=== PATIENT | male | born 1960 | race Caucasian/White ===

== ENCOUNTER → 2016-07-10 | Outpatient (CLI) | payer OTHER ==
--- NOTE | 2016-07-10 16:28 | CT ---
EXAMINATION TYPE: CT chest w con DATE OF EXAM: 07/10/2016 1:32 PM COMPARISON: There are no comparison studies at this location. HISTORY: Solitary Pulmonary Nodule CT DLP: 746 mGycm, Automated exposure control for dose reduction was used. CONTRAST: Performed injected with 100 mL of Omnipaque 300. TECHNIQUE: Axial images were obtained at 5 mm thick sections. Reconstructed images are reviewed on [facility] computer in the coronal plane. FINDINGS: Portion of the thyroid visualized is normal. No suspicious lung nodules or focal infiltrates are present. No enlarged mediastinal or hilar adenopathy is evident. The ascending aorta diameter at the level o f the main pulmonary artery is 4.3 cm. The main pulmonary artery diameter at the bifurcation is 2.[address] sections are obtained through the upper abdomen. There is moderate fatty infiltration to [facility] liver. IMPRESSIONS: 1. No suspicious lung nodules identified. 2. Aneurysmal dilatation of the ascending thoracic aorta
== END | disposition home or self-care (01) ==
LOC: RADCTMAIN 12:36
PROVIDERS: ATTEND Family Medicine
DX: I71.2 Thoracic aortic aneurysm, without rupture (principal)
CPT/HCPCS: 71260; Q9967

== ENCOUNTER 2019-12-04 10:43 | Day surgery (SDC) | payer OTHER ==
[2019-12-02 09:10] VITALS: BMI 38.4
[~2019-12-04 10:43] MED LIST: LACTATED RINGERS 1,000 ML IV SCH; LIDOCAINE 1% (10MG/ML) FOR IV START INTRADERMA PRN
[2019-12-04 10:58] VITALS: TEMP 97.8
[2019-12-04] MEDS ORDERED: LACTATED RINGERS 1,000 ML IV ONE (10:58)
[2019-12-04] MEDS ORDERED: PROPOFOL 10 MG/ML 20 ML VIAL IV ONE (12:05)
--- NOTE | 2019-12-04 12:19 | P.PCN ---
Date of Procedure: 12/04/19 Procedure(s) Performed: BRIEF HISTORY: Patient is a 59-year-old pleasant male scheduled for an elective colonoscopy as a part of Evaluation of prior history of colon polyps. Last colonoscopy was 3 years ago. PROCEDURE PERFORMED: Colonoscopy with biopsy and snare polypectomy. PREOPERATIVE DIAGNOSIS: History of colon polyps. IV sedation per Anesthesia. PROCEDURE: After informed consent was obtained, the patient, was brought into the endoscopy unit. IV sedation was administered by Anesthesia under continuous monitoring. Digital rectal examination was normal. Initially the Olympus CF-160 flexible video colonoscope was then inserted in the rectum, gradually advanced into the cecum without any difficulty. Careful examination was performed as the scope was gradually being withdrawn. Ileocecal valve and the appendiceal orifice were visualized and appeared normal. Prep was excellent. Mucosa of the cecum appeared normal. In the cecum there was a 2 mm sessile polyp removed by cold biopsy. In the hepatic flexure there was a 1.5 cm broad-based polyp removed by snare polypectomy. Rest of the ascending colon, transverse colon, descending colon, sigmoid colon, and rectum appeared normal. Retroflexion was performed in the rectum and no lesions were seen. The patient tolerated the procedure well. IMPRESSION: 2 mm sessile cecal polyp status post removal by cold biopsy 1.5 cm hepatic flexure polyp status post snare polypectomy RECOMMENDATIONS: Findings of this examination were discussed with the patient as well as his family. He was advised to follow with the biopsy results. If the biopsy shows an adenoma he can have a repeat colonoscopy in 3 years.
[2019-12-04 12:25] VITALS: PULSE 71
[2019-12-04 12:42] VITALS: BP 146/78; RESP 16
== END 2019-12-04 12:51 | disposition home or self-care (01) ==
LOC: ORWHC2ENDO 10:43
PROVIDERS: ATTEND Internal Medicine Gastroenterology
DX: Z12.11 Encounter for screening for malignant neoplasm of colon (principal); D12.3 Benign neoplasm of transverse colon; K63.5 Polyp of colon; K21.9 Gastro-esophageal reflux disease without esophagitis; Z86.010 Personal history of colon polyps; I10 Essential (primary) hypertension; G47.33 Obstructive sleep apnea (adult) (pediatric); Z99.89 Dependence on other enabling machines and devices; Z79.899 Other long term (current) drug therapy
CPT/HCPCS: 88305; 45380; 45385; J2704

== ENCOUNTER → 2023-02-11 | Outpatient (CLI) | payer OTHER ==
--- NOTE | 2023-02-13 12:40 | MR ---
EXAMINATION TYPE: MR tspine/lspine wo con DATE OF EXAM: 02/11/2023 5:48 PM CLINICAL INDICATION:Male, 62 years old with history of M54.16 RADICULOPATHY; PHH, Pain mid and low ba ck into right side COMPARISON: CT 01/24/2023 TECHNIQUE: Multi planar, multi sequence imaging was performed utilizing: T1-weighted, T2-weighted, a nd turbo inversion recovery imaging of the thoracic and lumbar spine. IV Contrast: cc . None. FINDINGS: Alignment: The thoracic and lumbar vertebral bodies have preserved heights and alignment. Cord: The conus medullaris and the distal spinal cord appear unremarkable with regards to their signa l intensity and morphology. Bones/Discs: Multilevel degeneration changes throughout the spine. Suspected high T1/high T2 signal T 7 vertebral body hemangioma. There is no abnormal bony edema on inversion recovery sequences. No abno rmal THORACIC: T5-T6 left facet joint osteophyte which mildly impresses upon the posterior left lateral spinal cord. Cord signal is maintained. T6-T7 left central/subarticular disc protrusion/extrusion which impresses upon the spinal cord, cord signal is maintained. There may be disc material extending inferiorly up to 9 mm T7-T8 osteophytes with mild spinal canal stenosis. The neural foramen are patent. T8-T9 osteophyte formation with mild spinal canal stenosis. The neural foramen are patent. The remainder of the levels without evidence of significant spinal canal or neural foraminal stenosis . LUMBAR: T12-L1: No evidence of significant spinal canal stenosis or neural foraminal stenosis. L1-L2: Disc bulge and facet joint arthropathy result in mild spinal canal and mild bilateral neural f oraminal stenosis. L2-L3: Disc bulge and facet joint arthropathy result in mild to moderate spinal canal and mild bilate ral neural foraminal stenosis. L3-L4: Disc bulge and facet joint arthropathy result in moderate to severe spinal canal and severe bi lateral neural foraminal stenosis. L4-L5: Disc bulge with central disc protrusion and facet joint arthropathy result in mild to moderate spinal canal and moderate to severe bilateral neural foraminal stenosis. L5-S1: The disc is rounded posterior morphology without significant spinal canal stenosis. Facet join t arthropathy with mild neural foraminal stenosis. Other findings: None. IMPRESSION: 1. T6-T7 left central disc extrusion which impresses upon the spinal cord. 2. Disc degeneration changes with T7-T8 and T8-T9 osteophytes which narrow the spinal canal. 3. L3-L4 moderate to severe spinal canal stenosis secondary disc bulge and facet joint arthropathy. There is also severe bilateral neural foraminal stenosis. 4. L4-L5 disc bulge with central protrusion with mild to moderate spinal canal stenosis and moderate to severe bilateral neural foraminal stenosis.
== END | disposition home or self-care (01) ==
LOC: RADMRIMAIN 16:33
PROVIDERS: ATTEND Family Medicine
DX: M51.16 Intervertebral disc disorders with radiculopathy, lumbar region (principal); M47.26 Other spondylosis with radiculopathy, lumbar region; M99.73 Connective tissue and disc stenosis of intervertebral foramina of lumbar region; M48.061 Spinal stenosis, lumbar region without neurogenic claudication; M51.14 Intervertebral disc disorders with radiculopathy, thoracic region; M25.78 Osteophyte, vertebrae
CPT/HCPCS: 72146; 72148

== ENCOUNTER 2023-03-27 07:29 | Day surgery (SDC) | payer OTHER ==
[2023-03-25 12:35] VITALS: BMI 41.3
[2023-03-27 07:58] VITALS: RESP 20; TEMP 98.6
[2023-03-27] MEDS ORDERED: PROPOFOL 10 MG/ML 20 ML VIAL IV ONE (08:33)
[2023-03-27] MEDS ORDERED: LIDOCAINE 1% INJ 10MG/ML (20 ML MDV) ONE (08:33)
--- NOTE | 2023-03-27 08:47 | P.PCN ---
Date of Procedure: 03/27/23 Procedure(s) Performed: BRIEF HISTORY: Patient is a 62-year-old pleasant white male scheduled for an elective colonoscopy as a part of evaluation of prior history of colon polyps. Last coloscopy was 3 years ago and was noted to have colon polyps. PROCEDURE PERFORMED: Colonoscopy with snare polypectomy. PREOPERATIVE DIAGNOSIS: History of colon polyps. IV sedation per Anesthesia. PROCEDURE: After informed consent was obtained, the patient, was brought into the endoscopy unit. IV sedation was administered by Anesthesia under continuous monitoring. Digital rectal examination was normal. Initially the Olympus CF-160 flexible video colonoscope was then inserted in the rectum, gradually advanced i nto the cecum without any difficulty. Careful examination was performed as the scope was gradually being withdrawn. Ileocecal valve and the appendiceal orifice were visualized and appeared normal. Prep was excellent. Mucosa of the cecum, ascending colon appeared normal. In the transverse colon there was a 1 cm polyp that was removed by snare polypectomy. Rest of the, transverse colon, descendin g colon, sigmoid colon, and rectum appeared normal. Retroflexion was performed in the rectum and no lesions were seen. The patient tolerated the procedure well. IMPRESSION: 1 cm transverse colon polyp status post polypectomy Rest of the colon appeared normal RECOMMENDATIONS: Findings of this examination were discussed with the patient as well as his family.. He was advised to follow with the biopsy results. If the biopsy reveals adenoma he can have a repeat colonoscopy in 3 years.
[2023-03-27 09:24] VITALS: BP 126/73; PULSE 76
== END 2023-03-27 09:21 | disposition home or self-care (01) ==
LOC: ORWHC2ENDO 07:29
PROVIDERS: ATTEND Internal Medicine Gastroenterology
DX: Z12.11 Encounter for screening for malignant neoplasm of colon (principal); D12.3 Benign neoplasm of transverse colon; I10 Essential (primary) hypertension; E78.5 Hyperlipidemia, unspecified; G47.33 Obstructive sleep apnea (adult) (pediatric); Z98.890 Other specified postprocedural states; Z86.010 Personal history of colon polyps; Z79.899 Other long term (current) drug therapy
CPT/HCPCS: 88305; 45385; J2001; J2704

== ENCOUNTER → 2023-06-24 | Outpatient (CLI) | payer OTHER ==
[2023-06-24 13:45] VITALS: BP 141/90; PULSE 99; RESP 15; TEMP 97.5
--- NOTE | 2023-06-24 14:36 | P.PAINPG ---
PQRS Measure Charge Sheet Comment: HISTORY OF PRESENT ILLNESS: A 63 yr old male w at side as a referral from Dr Luo presents today w severe and chronic mid back pain x 1 yr secondary to stenosis, DDD, spondylosis and facet arthropathy without myelopathy for evaluation. Pt states pain level is provoked at 9 /10 in intensity, constant, localized in the mid back, predominantly axial, dull in character w occasional shooting pain towards the neck. Pain is provoked by sitting/ standing in one position for > 20min and PT in 2019 which provoked immense pain. Pain is alleviated by physician guided home stretching regimen daily from [facility] since May 2023, injections (RFAs and ESIs), medications (Neurontin, [place], Toradol, Mobic, Tyl), repositioning and rest. Oswestry axial pain score at 26. PMH: OA, HTN, Hyperlipidemia, Gout PSH: Colonoscopy (2015, 2019, 2022), BL RFA T8-T12 (2018), Laminectomy, Lasik Surgery SH: No tobacco use, Occasional ETOH use, No illicit drug use. . FH: Noncontributory All: See list Meds: See list REVIEW OF ORGAN SYSTEMS: CONSTITUTIONAL: No fevers or chills. No recent weight loss. NEUROLOGICAL: + numbness and tingling along the distal extremities. No seizure disorders or headaches. MUSCULOSKELETAL: + pain PSYCHIATRIC: Denies current depression or suicidal thoughts. Physical Examinations : Constitutional : Cooperative , not in acute distress . Neurologic : Cranial nerve II to XII intact. No focal neurological deficits. Psychiatric : alert & oriented x 3. Matching mood & appropriate affect. Judgment & insight intact. Musculoskeletal : Cervical Spine Motor strength in the deltoid and biceps: Normal right side. Normal Left side Motor strength biceps and the wrist extensors: Normal right side . Normal left side Motor strength in the triceps muscle: Normal right side. Normal left side Deep tendon reflexes: Normal at the biceps. Normal at Brachioradialis. Normal at triceps Vertebral body tenderness to deep palpa tion over Cervical facet loading test: positive bilaterally Spurling test: positive bilaterally Neck distraction test: positive bilaterally Lachelle sign: positive bilaterally Thoracic spine Vertebral body TTP over T11 Ba test positive T11-T12 Lumbar spine Motor strength lower extremities ,thigh and legs 5/5 Right side , 5/5 Left side Deep tendon reflexes : Normal Knee Jerk. Normal Ankle Jerk Vertebral body tenderness over Ba Test positive Lumbar facet Loading Test: positive Right / positive Left Range of motion of the lumbar spine Flexion 30 degrees, extension 10 degrees Straight Leg Raise test: Left/ Right positive at degrees Isabella test: positive right / positive left. Severe tenderness over the Sacroiliac joint on the Right / Left sides Gaenslen test: positive bilaterally Seated flexion test: positive bilaterally. Sacral spine : Severe tenderness over the Sacroiliac joint: right side / left side Range of motion: Flexion of the lumbar spine <60 degrees Range of motion: Extension of the lumbar spine <20 degrees Gaenslen's Test positive Isabella test: positive right side / left side Thigh Thrust Test Sacral Thrust Test Imaging: MRI noncontrast of the thoracic and lumbar spine from 02/11/23 reviewed Assessment/ Plan : Thoracic stenosis, lumbar stenosis, lumbar DDD Recommendation of HERNAN T11-T12 #1. May need a series f injections for optimal pain relief. Risks, benefits of procedure discussed and patient verbalized understanding. Admits to anti- coagulant use or medical history of diabetes. Protocol for discontinuation/ continuation of medications florence procedure discussed. All questions answered. I have spent greater than 30 minutes on patient care today. Dr Epstein was available by phone for the evaluation of this patient. The time was used to review the medical records including relevant urine studies and Prescription history (MAPs), review of the available imaging, evaluation and examination of the patient, coordination of care with the medical staff and if applicable referring physicians, as well as creation of the medical record PQRS Narrative: Smoking Status Never smoker Home Medications: Ambulatory Orders Ascorbic Acid [Vitamin C] 1,000 mg PO DAILY 12/06/15 Cholecalciferol [Vitamin D3] 5,000 unit PO DAILY 12/06/15 Lisinopril-Hctz 10-12.5 mg [Zestoretic 10-12.5] 1 tab PO QAM 12/06/15 Omeprazole 20 mg PO DAILY 12/06/15 Gabapentin 300 mg PO TID 12/02/19 Krill Oil 500 mg PO DAILY 12/02/19 Multivit-Min/Folic/Vit K/Lycop [Men's Multivitamin Tablet] 1 each PO DAILY 0 12/02/19 Nebivolol HCl [Bystolic] 20 mg PO DAILY 12/02/19 Rosuvastatin [Crestor] 10 mg PO HS 03/25/23 Controlled Substance Measures - Controlled Substance Measures Is patient prescribed a controlled substance at discharge?: No
== END ==
LOC: PNWHC3 12:55
PROVIDERS: ATTEND Specialist
DX: M48.05 Spinal stenosis, thoracolumbar region (principal); M48.062 Spinal stenosis, lumbar region with neurogenic claudication; M51.35 Other intervertebral disc degeneration, thoracolumbar region; M19.90 Unspecified osteoarthritis, unspecified site; I10 Essential (primary) hypertension; E78.5 Hyperlipidemia, unspecified; Z79.899 Other long term (current) drug therapy; Z87.39 Personal history of other diseases of the musculoskeletal system and connective tissue
CPT/HCPCS: 99211

== ENCOUNTER 2023-07-02 11:04 | Day surgery (SDC) | payer OTHER ==
[2023-06-28 11:02] VITALS: BMI 41.3
[~2023-07-02 11:04] MED LIST changes: -LIDOCAINE 1% (10MG/ML) FOR IV START INTRADERMA PRN
[2023-07-02 11:53] VITALS: RESP 18; TEMP 98.6
[2023-07-02] MEDS ORDERED: methylPREDNISolone ACETATE 80 MG/ML 1 ML VIAL ONE (12:38)
[2023-07-02] MEDS ORDERED: ROPIVACAINE 5MG/ML 20ML VIAL ONE (12:38)
[2023-07-02] MEDS ORDERED: IOPAMIDOL M300 15ML VIAL ONE (12:38)
--- NOTE | 2023-07-02 13:05 | P.PCN ---
Description of Procedure: PREOPERATIVE DIAGNOSIS: 1- Thoracic Degenerative Disc Diseases 2-Thoracic spondylosis with Facet arthropathy without myelopathy. 3-Thoracic spinal stenosis POSTOPERATIVE DIAGNOSIS: 1-Thoracic degenerative disc disease. 2-Thoracic spondylosis with facet arthropathy without myelopathy. 3-Thoracic spinal stenosis. PROCEDURE Injection of radio contrast material into T10-11 interspace, interpretation of epidurogram, injection of steroid at T10-11 epidural space under fluoroscopic guidance. ANESTHESIA: Lidocaine 1% subcutaneously. In OR continuous pulse ox, EKG, blood pressure and verbal communication was maintained with the patient. EBL: Minimal PROCEDURE INDICATION: Before the procedure were discussed with the patient detailed procedure, alternatives, complications including infection, bleeding, nerve damage, paralysis all of which could be permanent. Patient understands and all questions were answered. PROCEDURE DESCRIPTION : After getting consent, patient in OR in prone position. Back was prepped with chlorhexidine and draped in sterile fashion. After injecting 10 mL of 1% lidocaine subcutaneously, a 20-gauge Tuohy needle was introduced at T10-11 interspace with loss of resistance technique using a syringe filled with air. Negative CSF, negative blood, negative paresthesia. Needle position was con firmed with AP and lateral view of the fluoroscope. After repeat negative aspiration 2 mL of Omnipaque 200 water soluble contrast was injected. Contrast was noted in the epidural space. No contrast was noted into intrathecal or intravascular space. After repeat negative aspiration 5 mL solution was injected intermittently which consists of 4 mL of preservative-free normal saline mixed with 1 mL of 80 mg Depo-Medrol. Needle was withdrawn intact. Skin was cleansed and Band-Aids was applied. DISPOSITION / PLANS: The patient tolerated the procedure well. No complication. The patient was placed in a supine position and transferred to the recovery area in a stable condition for observation. There was no evidence of lower extremity motor or sensory deficit after the procedure. Patient was discharged from the recovery room after meeting discharge criteria. Home discharge instructions were given to the patient by the staff. The patient was reexamined prior to discharge. The patient will schedule a follow up in the clinic in 2-4 weeks.
[2023-07-02 13:31] VITALS: BP 135/78; PULSE 74
--- NOTE | 2023-07-02 13:48 | FL ---
Fluoroscopy INDICATION: Pain FINDINGS: Fluoroscopy time: 9 seconds. Total dose area product (DAP) in uGy*m?, mGy*cm? (or similar): 0.09151 Images obtained: 3. IMPRESSION: 1. Documentation of fluoroscopy.
== END 2023-07-02 13:23 | disposition home or self-care (01) ==
LOC: ORPAIN 11:04
PROVIDERS: ATTEND Pain Medicine Interventional Pain Medicine
DX: M51.34 Other intervertebral disc degeneration, thoracic region (principal); M47.814 Spondylosis without myelopathy or radiculopathy, thoracic region; M48.04 Spinal stenosis, thoracic region; Z79.83 Long term (current) use of bisphosphonates; Z79.899 Other long term (current) drug therapy
CPT/HCPCS: 62321; J1040; Q9967; J2795

== ENCOUNTER → 2023-07-17 | Outpatient (CLI) | payer OTHER ==
[2023-07-17 13:59] VITALS: BP 158/87; PULSE 78; RESP 16
--- NOTE | 2023-07-17 14:35 | P.PAINPG ---
PQRS Measure Charge Sheet Comment: HISTORY OF PRESENT ILLNESS: A 63 yr old male w at side presents today w severe and chronic mid back pain x 1 yr secondary to stenosis, DDD, spondylosis and facet arthropathy without myelopathy for evaluation s/p HERNAN T10-11 #1. Pt states he experienced 50% pain relief x 3 wks s/p procedure. Pt states pain level is provoked at 9 /10 in intensity, constant, localized in the mid back, predominantly axial, dull in character w occasional shooting pain towards the neck. Pain is provoked by sitting/ standing in one position for > 20min and PT in 2019 which provoked immense pain. Pain is alleviated by physician guided home stretching regimen daily from [facility] since May 2023, use of an inversion table at home during physician guided home exercises, injections, medications, repositioning and rest. Oswestry axial pain score at 26. Interventional procedures include HERNAN T10-11 x1, RFAs Medications include [place], Neurontin, Toradol, Mobic, Tyl REVIEW OF ORGAN SYSTEMS: CONSTITUTIONAL: No fevers or chills. No recent weight loss. NEUROLOGICAL: + numbness and tingling along the distal extremities. No seizure disorders or headaches. MUSCULOSKELETAL: + pain PSYCHIATRIC: Denies current depression or suicidal thoughts. Physical Examinations : Constitutional : Cooperative , not in acute distress . Neurologic : Cranial nerve II to XII intact. No focal neurological deficits. Psychiatric : alert & oriented x 3. Matching mood & appropriate affect. Judgment & insight intact. Musculoskeletal : Cervical Spine Motor strength in the deltoid and biceps: Normal right side. Normal Left side Motor strength biceps and the wrist extensors: Normal right side . Normal left side Motor strength in the triceps muscle: Normal right side. Normal left side Deep tendon reflexes: Normal at the biceps. Normal at Brachioradialis. Normal at triceps Vertebral body tenderness to deep palpation over Cervical facet loading test: positive bilaterally Spurling test: positive bilaterally Neck distraction test: positive bilate rally Lachelle sign: positive bilaterally Thoracic spine Vertebral body TTP over T8 Ba test positive T8-9 BL Lumbar spine Motor strength lower extremities ,thigh and legs 5/5 Right side , 5/5 Left side Deep tendon reflexes : Normal Knee Jerk. Normal Ankle Jerk Vertebral body tenderness over Ba Test positive Lumbar facet Loading Test: positive Right / positive Left Range of motion of the lumbar spine Flexion 30 degrees, extension 10 degrees Straight Leg Raise test: Left/ Right positive at degrees Isabella test: positive right / positive left. Severe tenderness over the Sacroiliac joint on the Right / Left sides Gaenslen test: positive bilaterally Seated flexion test: positive bilaterally. Sacral spine : Severe tenderness over the Sacroiliac joint: right side / left side Range of motion: Flexion of the lumbar spine <60 degrees Range of motion: Extension of the lumbar spine <20 degrees Gaenslen's Test positive Isabella test: positive right side / left side Thigh Thrust Test Sacral Thrust Test Imaging: MRI noncontrast of the thoracic and lumbar spine from 02/11/23 reviewed Assessment/ Plan : Thoracic stenosis, lumbar stenosis, lumbar DDD Recommendation of HERNAN T8-T9 #2. May need a series f injections for optimal pain relief. Risks, benefits of procedure discussed and patient verbalized understanding. Admits to anti- coagulant use or medical history of diabetes. Protocol for discontinuation/ continuation of medications florence procedure discussed. All questions answered. I have spent greater than 30 minutes on patient care today. Dr Epstein was available by phone for the evaluation of this patient. The time was used to review the medical records including relevant urine studies and Prescription history (MAPs), review of the available imaging, evaluation and examination of the patient, coordination of care with the medical staff and if applicable referring physicians, as well as creation of the medical record PQRS Narrative: Smoking Status Never smoker Hx Alcohol Use (MH) No Home Medications: Ambulatory Orders Ascorbic Acid [Vitamin C] 1,000 mg PO DAILY 12/06/15 Cholecalciferol [Vitamin D3] 5,000 unit PO DAILY 12/06/15 Lisinopril-Hctz 10-12.5 mg [Zestoretic 10-12.5] 1 tab PO QAM 12/06/15 Omeprazole 20 mg PO DAILY 12/06/15 Gabapentin 300 mg PO TID 12/02/19 Krill Oil 500 mg PO DAILY 12/02/19 Multivit-Min/Folic/Vit K/Lycop [Men's Multivitamin Tablet] 1 each PO DAILY 12/02/19 Nebivolol HCl [Bystolic] 20 mg PO DAILY 12/02/19 Rosuvastatin [Crestor] 10 mg PO HS 03/25/23 Controlled Substance Measures - Controlled Substance Measures Is patient prescribed a controlled substance at discharge?: No
== END ==
LOC: PNWHC3 12:52
PROVIDERS: ATTEND Specialist
DX: M51.36 Other intervertebral disc degeneration, lumbar region (principal); M48.061 Spinal stenosis, lumbar region without neurogenic claudication; M48.04 Spinal stenosis, thoracic region
CPT/HCPCS: 99211

== ENCOUNTER 2023-08-08 12:52 | Day surgery (SDC) | payer OTHER ==
[2023-08-02 14:43] VITALS: BMI 41.6
[2023-08-08] MEDS ORDERED: LACTATED RINGERS 1,000 ML IV SCH (13:11)
[2023-08-08 13:42] VITALS: RESP 16; TEMP 97
[2023-08-08] MEDS ORDERED: IOPAMIDOL M300 15ML VIAL ONE (14:46)
[2023-08-08] MEDS ORDERED: ROPIVACAINE 5MG/ML 20ML VIAL ONE (14:46)
[2023-08-08] MEDS ORDERED: methylPREDNISolone ACETATE 80 MG/ML 1 ML VIAL ONE (14:46)
--- NOTE | 2023-08-08 15:30 | P.PCN ---
Description of Procedure: PREOPERATIVE DIAGNOSIS: 1- Thoracic Degenerative Disc Diseases 2-Thoracic spondylosis with Facet arthropathy without myelopathy. 3-Thoracic spinal stenosis POSTOPERATIVE DIAGNOSIS: 1-Thoracic degenerative disc disease. 2-Thoracic spondylosis with facet arthropathy without myelopathy. 3-Thoracic spinal stenosis. PROCEDURE Injection of radio contrast material into T 9-10 interspace, interpretation of epidurogram, injection of steroid at T 9-10 epidural space under fluoroscopic guidance. ANESTHESIA: Lidocaine 1% subcutaneously. In OR continuous pulse ox, EKG, blood pressure and verbal communication was maintained with the patient. EBL: Minimal PROCEDURE INDICATION: Before the procedure were discussed with the patient detailed procedure, alternatives, complications including lung puncture, infection, bleeding, nerve damage, paralysis all of which could be permanent. Patient understands and all questions were answered. PROCEDURE DESCRIPTION : After getting consent, patient in OR in prone position. Back was prepped with chlorhexidine and draped in sterile fashion. After injecting 10 mL of 1% lidocaine subcutaneously, a 20-gauge Tuohy needle was introduced at T 9-10 interspace with loss of resistance technique using a syringe filled with air. Negative CSF, negative blood, negative paresthesia. Needle position was confirmed with AP and lateral view of the fluoroscope. After repeat negative aspiration 2 mL of Omnipaque 200 water soluble contrast was injected. Contrast was noted in the epidural space. No contrast was noted into intrathecal or intravascular space. After repeat negative aspiration 5 mL solution was injected intermittently which consists of 4 mL of preservative-free normal saline mixed with 1 mL of 80 mg Depo-Medrol. Needle was withdrawn intact. Skin was cleansed and Band-Aids was applied. DISPOSITION / PLANS: The patient tolerated the procedure well. No complication. The patient was placed in a supine position and transferred to the recovery area in a stable condition for observation. There was no evidence of lower extremity motor or sensory deficit after the procedure. Patient was discharged from the recovery room after meeting discharge criteria. Home discharge instructions were given to the patient by the staff. The patient was reexamined prior to discharge. The patient will schedule a follow up in the clinic in 2-4 weeks.
--- NOTE | 2023-08-08 15:38 | FL ---
Fluoroscopy INDICATION: Pain FINDINGS: Fluoroscopy time: 28 seconds. Total dose area product (DAP) in uGy*m?, mGy*cm? (or similar): 0.58365 Images obtained: 3. IMPRESSION: 1. Documentation of fluoroscopy.
[2023-08-08 15:42] VITALS: BP 142/89; PULSE 61
== END 2023-08-08 15:40 | disposition home or self-care (01) ==
LOC: ORPAIN 12:52
PROVIDERS: ATTEND Pain Medicine Interventional Pain Medicine
DX: M48.04 Spinal stenosis, thoracic region (principal); M47.814 Spondylosis without myelopathy or radiculopathy, thoracic region; M51.34 Other intervertebral disc degeneration, thoracic region; I10 Essential (primary) hypertension; Z79.899 Other long term (current) drug therapy
CPT/HCPCS: 62321; J1040; Q9967; J2795

== ENCOUNTER → 2023-08-26 | Outpatient (CLI) | payer OTHER ==
--- NOTE | 2023-08-26 13:52 | P.PAINPG ---
Objective - Vital Signs Vital signs: Intake & Output 08/25/23 08/26/23 08/26/23 18:59 06:59 18:59 Weight 127.006 kg PQRS Measure Charge Sheet Comment: HISTORY OF PRESENT ILLNESS: A 63 yr old male w at side presents today w severe and chronic back pain x 1 yr secondary to stenosis, DDD, spondylosis and facet arthropathy without myelopathy for evaluation s/p HERNAN T9-10 #2. Pt states he experienced 80 % pain relief x 2-3 wks s/p procedure. Pt states pain level is provoked at 7 /10 in intensity, constant, localized in the mid back, predominantly axial, dull in character w occasional shooting pain towards the lower back. Pain is provoked by sitting/ standing in one position for > 20min and PT in 2018 which provoked immense pain. Pain is alleviated by physician guided home stretching regimen daily from [facility] since May 2023, use of an inversion table at home during physician guided home exercises, injections, medications, repositioning and rest. Pt states she will start PT in 1 wk. Oswestry axial pain score at 25. Interventional procedures include HERNAN T10-11 x1, RFAs, HERNAN T9-10 x1 (Aug 2023) Medications include [place], Neurontin, Toradol, Mobic, Tyl REVIEW OF ORGAN SYSTEMS: CONSTITUTIONAL: No fevers or chills. No recent weight loss. NEUROLOGICAL: + numbness and tingling along the distal extremities. No seizure disorders or headaches. MUSCULOSKELETAL: + pain PSYCHIATRIC: Denies current depression or suicidal thoughts. Physical Examinations : Constitutional : Cooperative , not in acute distress . Neurologic : Cranial nerve II to XII intact. No focal neurological deficits. Psychiatric : alert & oriented x 3. Matching mood & appropriate affect. Judgment & insight intact. Musculoskeletal : Cervical Spine Motor strength in the deltoid and biceps: Normal right side. Normal Left side Motor strength biceps and the wrist extensors: Normal right side . Normal left side Motor strength in the triceps muscle: Normal right side. Normal left side Deep tendon reflexes: Normal at the biceps. Normal at Brachioradialis. Normal at triceps Vertebral body tenderness to deep palpation over Cervical facet loading test: positive bilaterally Spurling test: positive bilaterally Neck distraction test: positive bilaterally Lachelle sign: positive bilaterally Thoracic spine Vertebral body TTP over T8 Ba test positive T8-9 BL Lumbar spine Motor strength lower extremities ,thigh and legs 5/5 Right side , 5/5 Left side Deep tendon reflexes : Normal Knee Jerk. Normal Ankle Jerk Vertebral body tenderness over L4 Ba Test positive L4-L5 BL Lumbar facet Loading Test: positive Right / positive Left Range of motion of the lumbar spine Flexion 30 degrees, extension 10 degrees Straight Leg Raise test: Left/ Right positive at degrees Isabella test: positive right / positive left. Severe tenderness over the Sacroiliac joint on the Right / Left sides Gaenslen test: positive bilaterally Seated flexion test: positive bilaterally. Sacral spine : Severe tenderness over the Sacroiliac joint: right side / left side Range of motion: Flexion of the lumbar spine <60 degrees Range of motion: Extension of the lumbar spine <20 degrees Gaenslen's Test positive Isabella test: positive right side / left side Thigh Thrust Test Sacral Thrust Test Imaging: MRI noncontrast of the thoracic and lumbar spine from 02/11/23 reviewed Assessment/ Plan : Thoracic stenosis, lumbar stenosis, lumbar DDD Recommendation of HERNAN L4-L 5#1. May need a series f injections for optimal pain relief. Risks, benefits of procedure discussed and patient verbalized understanding. Admits to anti- coagulant use or medical history of diabetes. Protocol for discontinuation/ continuation of medications [place]orence procedure discussed. All questions answered. I have spent greater than 30 minutes on patient care today. Dr Epstein was available by phone for the evaluation of this patient. The time was used to review the medical records including relevant urine studies and Prescription history (MAPs), review of the available imaging, evaluation and examination of the patient, coordination of care with the medical staff and if applicable referring physicians, as well as creation of the medical record PQRS Narrative: Smoking Status Never smoker Hx Alcohol Use (MH) No Home Medications: Ambulatory Orders Ascorbic Acid [Vitamin C] 1,000 mg PO DAILY 12/06/15 Cholecalciferol [Vitamin D3] 5,000 unit PO DAILY 12/06/15 Lisinopril-Hctz 10-12.5 mg [Zestoretic 10-12.5] 1 tab PO QAM 12/06/15 Omeprazole 20 mg PO DAILY 12/06/15 Gabapentin 300 mg PO TID 12/02/19 Krill Oil 500 mg PO DAILY 12/02/19 Multivit-Min/Folic/Vit K/Lycop [Men's Multivitamin Tablet] 1 each PO DAILY 12/02/19 Nebivolol HCl [Bystolic] 20 mg PO DAILY 12/02/19 Rosuvastatin [Crestor] 10 mg PO HS 03/25/23 diazePAM [Valium] 5 mg PO DAILY PRN 1 Days #2 tab 08/26/23 Controlled Substance Measures - Controlled Substance Measures Is patient prescribed a controlled substance at discharge?: Yes When asked, does pt state using other controlled substances?: Yes If prescribed controlled substance>3 days was MAPS reviewed?: Prescribed <3 Days
[2023-08-26 14:26] VITALS: BP 132/72; PULSE 76; RESP 15; TEMP 98.5
== END ==
LOC: PNWHC3 12:58
PROVIDERS: ATTEND Specialist
DX: M51.16 Intervertebral disc disorders with radiculopathy, lumbar region (principal); M48.05 Spinal stenosis, thoracolumbar region
CPT/HCPCS: 99211

== ENCOUNTER 2023-09-10 09:58 | Day surgery (SDC) | payer OTHER ==
[2023-09-10 10:38] VITALS: RESP 16; TEMP 98
[2023-09-10] MEDS ORDERED: IOPAMIDOL M200 10 ML VIAL ONE (10:38)
[2023-09-10] MEDS ORDERED: ROPIVACAINE 5MG/ML 20ML VIAL ONE (10:38)
[2023-09-10] MEDS ORDERED: TRIAMCINOLONE ACETONIDE 40 MG/ML 1 ML VIAL ONE (10:38)
--- NOTE | 2023-09-10 10:51 | P.PCN ---
Date of Procedure: 09/10/23 Surgeon: Carlyn Najera Pathology: none sent Condition: stable Disposition: PACU Description of Procedure: PREOPERATIVE DIAGNOSIS: 1-Lumbar radiculopathy 2- Lumber Degenerative Disc Diseases. POSTOPERATIVE DIAGNOSIS: 1-Lumbar radiculopathy. 2-Lumbar Degenerative Disc Diseases PROCEDURE 1. Lumbar epidural steroid injection under fluoroscopic guidance at the L5-S1 level in the right paramedian approach. 2. Lumbar epidurogram. ANESTHESIA: Local only with 1% lidocaine EBL: Minimal PROCEDURE INDICATION: The patient with low back pain and radiculitis symptoms unresponsive to conservative treatment. Fluoroscopy was used to optimize visualization of the needle placement and to maximize safety. PROCEDURE DESCRIPTION / TECHNIQUE: The patient was seen and identified in the preoperative area. Risks, benefits, complications including but not limited to infections ,bleeding ,allergic reaction to the medications ,nerve damage and not complete pain relief , and alternatives were discussed with the patient. The patient agreed to proceed with the procedure and signed the consent. IV was started, and vital signs were stable. Patient was taken to the OR and time out was completed. The patient was placed in the prone position on procedure table and a pillow was placed under the abdomen to reduce lumbar lordosis. The lumbosacral area was prepped and draped in the usual sterile fashion with ChloraPrep.Patient was closely monitored during the procedure. Conscious sedation was used during the procedure to decrease patients anxiety. Vital signs were monitered during the entire p rocedure. Using anterior-posterior fluoroscopy, the L5-S1 interlaminar space was identified and the skin over this site was marked and then infiltrated with 1% lidocaine subcutaneously. Subsequently, a 20-gauge Tuohy epidural needle was inserted and advanced toward the epidural space using the Loss of resistance to air technique and guided by AP and lateral fluoroscopy. The correct needle position in the epidural space was verified with the injection of 1 mL of the water soluble contrast dye Omnipaque 180 contrast and observing an excellent epidurogram with the epidural spread of the dye, after negative aspiration for blood and CSF and in the absence of paresthesias. Again after negative aspiration, a 8 ml mixture containing 40 mg of Kenalog and 5 ml of preservative free Normal Saline, and 2 ml of preservative free Ropivacaine 0.5% solution was injected and a washout of epidurogram was seen. Needle was withdrawn intact, skin was cleansed, and bandages were applied. patient tolerated procedure well and was transferred to PACU in stable condition.A copy of the needle placement picture was saved to the fluoroscopy machine. COMPLICATIONS: None This procedure was done at the L5-S1 level to avoid the scar tissue from his previous back surgery at the L4 5 level which carries a higher risk for dural puncture. I think the next time the patient may need to be scheduled for caudal epidural steroid injection with lysis of adhesions instead of lumbar epidural steroid injection. DISPOSITION / PLANS: The patient was placed in a supine position and transferred to the recovery area in a stable condition for observation. There was no evidence of lower extremity motor or sensory deficit after the procedure. Patient was discharged from the recovery room after meeting discharge criteria. Home discharge instructions were given to the patient by the staff. The patient was reexamined prior to discharge. The patient will schedule a follow up in the clinic in 2-4 weeks.
[2023-09-10 11:24] VITALS: BP 113/77; PULSE 75
--- NOTE | 2023-09-10 11:47 | FL ---
EXAMINATION TYPE: FL guided pain mgmt statistic DATE OF EXAM: 09/10/2023 HISTORY: Fluoroscopy time Total dose area product (DAP) in uGy*m?, mGy*cm? (or similar): 0.97069 IMPRESSION: 1. Fluoroscopy time.
== END 2023-09-10 11:18 | disposition home or self-care (01) ==
LOC: ORPAIN 09:58
PROVIDERS: ATTEND Anesthesiology
DX: M51.16 Intervertebral disc disorders with radiculopathy, lumbar region (principal); I10 Essential (primary) hypertension; E66.01 Morbid (severe) obesity due to excess calories
CPT/HCPCS: 62323; J3301; Q9966; J2795

== ENCOUNTER → 2023-10-03 | Outpatient (CLI) | payer OTHER ==
--- NOTE | 2023-10-05 15:26 | CT ---
EXAMINATION TYPE: CT lumbar spine wo con DATE OF EXAM: 10/03/2023 COMPARISON: None HISTORY: bursal cyst on right side CT DLP: 2301.50 mGycm CONTRAST: None TECHNIQUE: CT of the lumbar spine is performed on a spiral scan at 3 mm thick sections. Reconstructed images are performed in the coronal and sagittal planes. FINDINGS: T12-L1: Minimal disc bulge is present with anterior thecal sac flattening. No AP spinal canal stenosi s present. Neural foramen are patent. L1-L2: Broad-based disc bulge with moderate anterior thecal sac flattening. No AP spinal canal stenos is present. Neural foramen are patent. L2-L3: Broad-based disc bulge is present with anterior thecal sac flattening. No AP spinal canal sten osis is present. Some mild left foraminal narrowing is present. L3-L4: Broad-based disc bulge is present with moderate anterior thecal sac compression. This may be g reater to the left paracentral region. Correlate with left L4 radicular symptoms. Facet hypertrophy i s present with posterior lateral thecal sac compression. In conjunction with the disc bulging spinal canal stenosis is present. Bilateral moderate foraminal narrowing is present. L4-L5: Broad-based disc bulge is present with moderate anterior thecal sac compression. Facet hypertr ophy is present. Findings are contributing to spinal canal stenosis. Severe left and right foraminal stenosis present. Correlate with L5 radicular symptoms. L5-S1: Mild disc bulge is present without thecal sac compression or exiting nerve root compression. M ild facet degenerative changes are present. Left foramen is patent. Right foramen has mild narrowing. Vertebral alignment appears normal. Note is made of anterior superior spondylosis in the lumbar spine IMPRESSION: 1. Spinal canal stenosis due to facet hypertrophy and broad-based disc bulging L3-4 and L4-5. 2. Foraminal stenosis appears severe left L4-5. 3. Multilevel minimal disc bulging without stenosis to the remaining lumbar spine
== END | disposition home or self-care (01) ==
LOC: RADCTMAIN 12:43
PROVIDERS: ATTEND Neurological Surgery
DX: M47.819 Spondylosis without myelopathy or radiculopathy, site unspecified (principal); M51.36 Other intervertebral disc degeneration, lumbar region; M48.061 Spinal stenosis, lumbar region without neurogenic claudication
CPT/HCPCS: 72131

== ENCOUNTER → 2023-10-09 | Outpatient (CLI) | payer OTHER ==
[2023-10-09 13:56] VITALS: BP 180/92; PULSE 72; RESP 16
--- NOTE | 2023-10-09 15:20 | P.PAINPG ---
Objective - Vital Signs Vital signs: Intake & Output 10/08/23 10/09/23 10/09/23 18:59 06:59 18:59 Weight 124.738 kg PQRS Measure Charge Sheet Comment: HISTORY OF PRESENT ILLNESS: A 63 yr old male presents today w severe and chronic back pain x 1 yr secondary to stenosis, DDD, spondylosis and facet arthropathy without myelopathy for evaluation s/p HERNAN L5-S1. Pt states he experienced 50 % pain relief x 4 wks s/p procedure. Pt states pain level is provoked at 7 /10 in intensity, constant, localized in the mid back, predominantly axial, dull in character w occasional shooting pain towards the lower back. Pain is provoked by sitting/ standing in one position for > 20min and PT in 2018 which provoked immense pain. Pain is alleviated by physician guided home stretching regimen daily from [facility] since May 2023, use of an inversion table at home during physician guided home exercises, injections, medications, repositioning and rest. Pt states she will start PT in 1 wk. Oswestry axial pain score at 25. Interventional procedures include HERNAN T10-11 x1, RFAs, HERNAN T9-10 x1 (Aug 2023), HERNAN L5-S1 x1 Medications include [place], Neurontin, Toradol, Mobic, Tyl REVIEW OF ORGAN SYSTEMS: CONSTITUTIONAL: No fevers or chills. No recent weight loss. NEUROLOGICAL: + numbness and tingling along the distal extremities. No seizure disorders or headaches. MUSCULOSKELETAL: + pain PSYCHIATRIC: Denies current depression or suicidal thoughts. Physical Examinations : Constitutional : Cooperative , not in acute distress . Neurologic : Cranial nerve II to XII intact. No focal neurological deficits. Psychiatric : alert & oriented x 3. Matching mood & appropriate affect. Judgment & insight intact. Musculoskeletal : Cervical Spine Motor strength in the deltoid and biceps: Normal right side. Normal Left side Motor strength biceps and the wrist extensors: Normal right side . Normal left side Motor strength in the triceps muscle: Normal right side. Normal left side Deep tendon reflexes: Normal at the biceps. Normal at Brachioradialis. Normal at triceps Vertebral body tenderness to deep palpation over Cervical facet loading test: positive bilaterally Spurling test: positive bilaterally Neck distraction test: positive bilaterally Lachelle sign: positive bilaterally Thoracic spine Vertebral body TTP over T8 Ba test positive T8-9 BL Lumbar spine Motor strength lower extremities ,thigh and legs 5/5 Right side , 5/5 Left side Deep tendon reflexes : Normal Knee Jerk. Normal Ankle Jerk Vertebral body tenderness over L4 Ba Test positive L4-L5 BL Lumbar facet Loading Test: positive Right / positive Left Range of motion of the lumbar spine Flexion 30 degrees, extension 10 degrees Straight Leg Raise test: Left/ Right positive at degrees Isabella test: positive right / positive left. Severe tenderness over the Sacroiliac joint on the Right / Left sides Gaenslen test: positive bilaterally Seated flexion test: positive bilaterally. Sacral spine : Severe tenderness over the Sacroiliac joint: right side / left side Range of motion: Flexion of the lumbar spine <60 degrees Range of motion: Extension of the lumbar spine <20 degrees Gaenslen's Test positive Isabella test: positive right side / left side Thigh Thrust Test Sacral Thrust Test Imaging: MRI noncontrast of the thoracic and lumbar spine from 02/11/23 reviewed Assessment/ Plan : Thoracic stenosis, lumbar stenosis, lumbar DDD Recommendation of HERNAN L4-L5 #2. May need a series of injections for optimal pain relief. Risks, benefits of procedure discussed and patient verbalized understanding. Admits to anti- coagulant use or medical history of diabetes. Protocol for discontinuation/ continuation of medications florence procedure discussed. All questions answered. I have spent greater than 30 minutes on patient care today. Dr Epstein was available by phone for the evaluation of this patient. The time was used to review the medical records including relevant urine studies and Prescription history (MAPs), review of the available imaging, evaluation and examination of the patient, coordination of care with the medical staff and if applicable referring physicians, as well as creation of the medical record PQRS Narrative: Smoking Status Never smoker Hx Alcohol Use (MH) No Home Medications: Ambulatory Orders Ascorbic Acid [Vitamin C] 1,000 mg PO QAM 12/06/15 Cholecalciferol [Vitamin D3] 5,000 unit PO QAM 12/06/15 Lisinopril-Hctz 10-12.5 mg [Zestoretic 10-12.5] 1 tab PO QAM 12/06/15 Omeprazole 20 mg PO QAM 12/06/15 Gabapentin 300 mg PO TID 12/02/19 Krill Oil 500 mg PO QAM 12/02/19 Multivit-Min/Folic/Vit K/Lycop [Men's Multivitamin Tablet] 1 each PO QAM 12/02/19 Nebivolol HCl [Bystolic] 20 mg PO QAM 12/02/19 Rosuvastatin [Crestor] 10 mg PO HS 03/25/23 diazePAM [Valium] 5 mg PO DAILY PRN 1 Days #2 tab 08/26/23 Meloxicam [Mobic] 15 mg PO DAILY 09/10/23 Controlled Substance Measures - Controlled Substance Measures Is patient prescribed a controlled substance at discharge?: No
== END ==
LOC: PNWHC3 12:53
PROVIDERS: ATTEND Specialist
DX: M51.36 Other intervertebral disc degeneration, lumbar region (principal); M48.05 Spinal stenosis, thoracolumbar region
CPT/HCPCS: 99211

== ENCOUNTER 2023-11-05 12:33 | Day surgery (SDC) | payer OTHER ==
[2023-11-04 09:21] VITALS: BMI 42.5
[2023-11-05] MEDS ORDERED: LACTATED RINGERS 1,000 ML IV SCH (12:46)
[2023-11-05 12:59] VITALS: TEMP 98.3
[2023-11-05] MEDS ORDERED: IOPAMIDOL M200 10 ML VIAL ONE (13:26)
[2023-11-05] MEDS ORDERED: methylPREDNISolone ACETATE 80 MG/ML 1 ML VIAL ONE (13:26)
--- NOTE | 2023-11-05 13:32 | P.PCN ---
Date of Procedure: 11/05/23 Procedure(s) Performed: PREOPERATIVE DIAGNOSIS: 1- Lumbar Degenerative Disc Diseases 2-Lumbar spondylosis with Facet arthropathy without myelopathy. 3-lumbar spinal stenosis POSTOPERATIVE DIAGNOSIS: 1-lumbar degenerative disc disease. 2-lumbar spondylosis with facet arthropathy without myelopathy. 3-lumbar spinal stenosis. PROCEDURE 1. Lumbar epidural steroid injection under fluoroscopic guidance at the L4-5 level. (Fluoroscopy imaging was available in radiology department) 2. Lumbar epidurogram. ANESTHESIA: Lidocaine 1% 3 and then only. EBL: Minimal PROCEDURE INDICATION: The patient with low back pain and radiculitis symptoms unresponsive to conservative treatment. Fluoroscopy was used to optimize visualization of the needle placement and to maximize safety. PROCEDURE DESCRIPTION / TECHNIQUE: The patient was seen and identified in the preoperative area. Risks, benefits, complications including but not limited to infections ,bleeding ,allergic reaction to the medications ,nerve damage and not complete pain releife , and alternatives were discussed with the patient. The patient agreed to proceed with the procedure and signed the consent, and vital signs were stable. Patient was taken to the OR and time out was completed. The patient was placed in the prone position on procedure table and a pillow was placed under the abdomen to reduce lumbar lordosis. The lumbosacral area was prepped and draped in the usual sterile fashion.ere closely monitored during the procedure. Vital signs was monitered during the entire procedure. Using anterior-posterior fluoroscopy, the L4-5 interlaminar space was identified and the skin over this site was marked and then infiltrated with 1% lidocaine subcutaneously. Subsequently, a 20-gauge Tuohy epidural needle was inserted and advanced toward the epidural space using the ``Loss of resistance technique and guided by AP and lateral fluoroscopy. The correct needle position in the epidural space was verified with the injection of 2 mL of the water soluble contrast dye Isovue 200 contrast and observing an excellent epidurogram with the epidural spread of the dye, after negative aspiration for blood and CSF and in the absence of paresthesias. Again after negative aspiration, a 6 ml mixture containing 80 mg of Depo-medrol ( Preservetive Free ), and 2 ml of preservative free Normal Saline, and 2 ml of preservative free lidocaine 1% solution was injected and a washout of epidurogram was seen. Needle was withdrawn intact, sk in was cleansed, and bandages were applied. COMPLICATIONS: None DISPOSITION / PLANS: The patient was placed in a supine position and transferred to the recovery area in a stable condition for observation. There was no evidence of lower extremity motor or sensory deficit after the procedure. Patient was discharged from the recovery room after meeting discharge criteria. Home discharge instructions were given to the patient by the staff. The patient was reexamined prior to discharge. The patient will schedule a follow up in the clinic in 2-4 weeks.
[2023-11-05 13:39] VITALS: BP 134/90; PULSE 75; RESP 18
--- NOTE | 2023-11-05 13:43 | FL ---
EXAMINATION TYPE: FL guided pain mgmt statistic Intraoperative/procedural fluoroscopic services were provided. Total fluoroscopy time is 1.9 seconds with a total of 1 submitted images to PACS. Please se e the operative/procedural note for further details. DAP: [id number] mGym2
== END 2023-11-05 13:52 | disposition home or self-care (01) ==
LOC: ORPAIN 12:33
PROVIDERS: ATTEND Specialist
DX: M48.061 Spinal stenosis, lumbar region without neurogenic claudication (principal); M51.16 Intervertebral disc disorders with radiculopathy, lumbar region; M47.26 Other spondylosis with radiculopathy, lumbar region; Z79.1 Long term (current) use of non-steroidal anti-inflammatories (NSAID); Z79.899 Other long term (current) drug therapy
CPT/HCPCS: 62323

== ENCOUNTER → 2023-11-23 | Outpatient (CLI) | payer OTHER ==
--- NOTE | 2023-11-23 16:19 | MR ---
EXAMINATION TYPE: MR lumbar spine wo con DATE OF EXAM: 11/23/2023 3:45 PM CLINICAL INDICATION:Male, 63 years old with history of M54.16 RADICULOPATHY, LUMBAR REGION; PHH, Low back pain that radiates down both legs COMPARISON: None TECHNIQUE: Multi planar, multi sequence imaging was performed utilizing: T1-weighted, T2-weighted, a nd turbo inversion recovery imaging of the lumbar spine. IV Contrast: cc . (None if empty) FINDINGS: Alignment: The lumbar vertebral bodies have preserved heights and alignment. Cord: The conus medullaris and the distal spinal cord appear unremarkable with regards to their signa l intensity and morphology. Bones/Discs: Mild degeneration changes throughout the spine with osteophyte formation and facet joint arthropathy. Multilevel disc desiccation is present. No abnormal inversion recovery signal to sugges t bony edema. T12-L1: No evidence of significant spinal canal stenosis or neural foraminal stenosis. L1-L2: No evidence of significant spinal canal stenosis or neural foraminal stenosis. L2-L3: Disc bulge and facet joint arthropathy result in mild spinal canal and mild bilateral neural f oraminal stenosis. L3-L4: Disc bulge and facet joint arthropathy result in moderate to severe spinal canal and severe ri ght and moderate to severe left neural foraminal stenosis. Facet joint hypertrophy abuts the cauda e quina on the right. L4-L5: Central disc protrusion which abuts the aL left nerve forming in the spinal canal. There is mi ld to moderate spinal canal stenosis moderate to severe bilateral neural foraminal stenosis. L5-S1: The disc has a rounded posterior morphology without significant spinal canal stenosis. Facet j oint arthropathy with mild to moderate bilateral neural foraminal stenosis. No significant spinal canal or neural foraminal stenosis in the remainder of the visualized levels. Other findings: None. IMPRESSION: 1. Central disc protrusion at L4-L5 which abuts the left forming nerves. 2. L4-L5 moderate to severe bilateral neural foraminal stenosis. 3. L3-L4 moderate to severe spinal canal stenosis. 4. L3-L4 severe right moderate severe left neural foraminal stenosis.
== END | disposition home or self-care (01) ==
LOC: RADMRIMAIN 14:54
PROVIDERS: ATTEND Family Medicine
DX: M51.16 Intervertebral disc disorders with radiculopathy, lumbar region (principal); M99.73 Connective tissue and disc stenosis of intervertebral foramina of lumbar region; M48.061 Spinal stenosis, lumbar region without neurogenic claudication
CPT/HCPCS: 72148

== ENCOUNTER → 2023-11-25 | Outpatient (CLI) | payer OTHER ==
[2023-11-25 13:41] VITALS: BP 176/107; PULSE 80; RESP 16
--- NOTE | 2023-11-25 15:04 | P.PAINPG ---
PQRS Measure Charge Sheet Comment: HISTORY OF PRESENT ILLNESS: A 63 yr old male w at side presents today w severe and chronic upper and lower back pain x 1 yr secondary to stenosis, DDD, spondylosis and facet arthropathy without myelopathy for evaluation s/p HERNAN L4-L5 #2. Pt states he experienced 50 % pain relief x 3 wks s/p procedure. Pt states pain level is provoked at 9 /10 in intensity, constant, localized in the mid back, predominantly axial, dull in character w occasional shooting pain towards the flanks. Pain is provoked by sitting/ standing in one position for > 20min and PT in 2019 which provoked immense pain. Pain is alleviated by physician guided home stretching regimen daily from [facility] since May 2023, use of an inversion table at home during physician guided home exercises, injections, medications, repositioning and rest. Pt states she will start PT in 1 wk. Oswestry axial pain score at 25. Interventional procedures include HERNAN T10-11 x1, RFAs, HERNAN T9-10 x1 (Aug 2023), HERNAN L5-S1 x1, L4-L5 x1 (Nov 2023) Medications include [place], Neurontin, Toradol, Mobic, Tyl REVIEW OF ORGAN SYSTEMS: CONSTITUTIONAL: No fevers or chills. No recent weight loss. NEUROLOGICAL: + numbness and tingling along the distal extremities. No seizure disorders or headaches. MUSCULOSKELETAL: + pain PSYCHIATRIC: Denies current depression or suicidal thoughts. Physical Examinations : Constitutional : Cooperative , not in acute distress . Neurologic : Cranial nerve II to XII intact. No focal neurological deficits. Psychiatric : alert & oriented x 3. Matching mood & appropriate affect. Judgment & insight intact. Musculoskeletal : Cervical Spine Motor strength in the deltoid and biceps: Normal right side. Normal Left side Motor strength biceps and the wrist extensors: Normal right side . Normal left side Motor strength in the triceps muscle: Normal right side. Normal left side Deep tendon reflexes: Normal at the biceps. Normal at Brachioradialis. Normal at triceps Vertebral body tenderness to deep palpation over Cervical facet loading test: positive bilaterally Spurling test: positive bilaterally Neck distraction test: positive bilaterally Lachelle sign: positive bilaterally Thoracic spine Vertebral body TTP over T9 Ba test positive T9-T10 BL Lumbar spine Motor strength lower extremities ,thigh and legs 5/5 Right side , 5/5 Left side Deep tendon reflexes : Normal Knee Jerk. Normal Ankle Jerk Vertebral body tenderness over L4 Ba Test positive L4-L5 BL Lumbar facet Loading Test: positive Right / positive Left Range of motion of the lumbar spine Flexion 30 degrees, extension 10 degrees Straight Leg Raise test: Left/ Right positive at degrees Isabella test: positive right / positive left. Severe tenderness over the Sacroiliac joint on the Right / Left sides Gaenslen test: positive bilaterally Seated flexion test: positive bilaterally. Sacral spine : Severe tenderness over the Sacroiliac joint: right side / left side Range of motion: Flexion of the lumbar spine <60 degrees Range of motion: Extension of the lumbar spine <20 degrees Gaenslen's Test positive Isabella test: positive right side / left side Thigh Thrust Test Sacral Thrust Test Imaging: MRI noncontrast of the thoracic and lumbar spine from 02/11/23 reviewed Assessment/ Plan : Thoracic stenosis, lumbar stenosis, lumbar DDD Recommendation of medication management. [place] 10/325mg #15 NR Use, side eff ects, adverse reactions, safe storage discussed. All questions answered. I have spent greater than 30 minutes on patient care today. Dr Epstein was available by phone for the evaluation of this patient. The time was used to review the medical records including relevant urine studies and Prescription history (MAPs), review of the available imaging, evaluation and examination of the patient, coordination of care with the medical staff and if applicable referring physicians, as well as creation of the medical record - Pain Location Bilateral Upper Back Non-Pharmacological Interventions: Heat, Ice, Physical Therapy Pharmacological Interventions: Epidural PQRS Narrative: Smoking Status Never smoker Hx Alcohol Use (MH) No Home Medications: Ambulatory Orders Ascorbic Acid [Vitamin C] 1,000 mg PO QAM 12/06/15 Cholecalciferol [Vitamin D3] 5,000 unit PO QAM 12/06/15 Lisinopril-Hctz 10-12.5 mg [Zestoretic 10-12.5] 1 tab PO QAM 12/06/15 Omeprazole 20 mg PO QAM 12/06/15 Gabapentin 300 mg PO TID 12/02/19 Krill Oil 500 mg PO QAM 12/02/19 Multivit-Min/Folic/Vit K/Lycop [Men's Multivitamin Tablet] 1 each PO QAM 12/02/19 Nebivolol HCl [Bystolic] 20 mg PO QAM 12/02/19 Rosuvastatin [Crestor] 10 mg PO HS 03/25/23 Meloxicam [Mobic] 15 mg PO DAILY 09/10/23 diazePAM [Valium] 5 mg PO DAILY PRN 1 Days #2 tab 11/04/23 HYDROcodone/APAP 10-325MG [[place] 10-325] 1 tab PO Q4HR PRN 3 Days #15 tab 11/25/23 Controlled Substance Measures - Controlled Substance Measures Is patient prescribed a controlled substance at discharge?: Yes When asked, does pt state using other controlled substances?: No If prescribed controlled substance>3 days was MAPS reviewed?: Prescribed <3 Days
== END ==
LOC: PNWHC3 13:14
PROVIDERS: ATTEND Specialist
DX: M51.35 Other intervertebral disc degeneration, thoracolumbar region (principal); M48.061 Spinal stenosis, lumbar region without neurogenic claudication; M47.816 Spondylosis without myelopathy or radiculopathy, lumbar region
CPT/HCPCS: 99211